=== PATIENT | female | born 1980 | race Caucasian/White ===

== ENCOUNTER 2019-11-03 12:41 | Emergency (ER) | payer MEDICAID ==
[2019-11-03 13:08] VITALS: TEMP 98.5
[2019-11-03] MEDS ORDERED: ACETAMINOPHEN-CAFF-BUTALBITAL 1 EA TAB PO ONE (13:40)
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
[2019-11-03 14:14] VITALS: BP 119/69; O2SAT 99
== END 2019-11-03 14:13 | disposition home or self-care (01) ==
LOC: ER 12:41
DX: S06.0X0A Concussion without loss of consciousness, initial encounter (principal); G44.319 Acute post-traumatic headache, not intractable; E07.9 Disorder of thyroid, unspecified; E11.9 Type 2 diabetes mellitus without complications; K21.9 Gastro-esophageal reflux disease without esophagitis; Z87.891 Personal history of nicotine dependence; W22.8XXA Striking against or struck by other objects, initial encounter; Y92.9 Unspecified place or not applicable

== ENCOUNTER → 2020-09-30 | Outpatient (CLI) | payer MEDICAID ==
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
--- NOTE | 2020-10-01 10:50 | RAD ---
EXAM DESCRIPTION: Cervical Spine,5 Views CLINICAL HISTORY: CERVICALGIA COMPARISON: None Available. TECHNIQUE: AP/lateral/ both oblique/open-mouth odontoid FINDINGS: There is anatomic alignment of the cervical spine with C1-C6 are visualized on lateral view. Port-A-Cath is present on the right with catheter looped into the lower cervical region. The tip of the catheter is lower in the chest. Cervical ribs are incidentally noted at C7. There is no bone lesion or fracture. Degenerative disc narrowing is [id number] at C4-5 and C6-7 with anterior spurring. There is no soft tissue abnormality identified. Oblique views show normal alignment of the lower cervical and upper thoracic vertebrae. The right-sided cervical neural foramina are not well-seen due to shallow oblique. The left-sided cervical neural foramina appear widely patent. IMPRESSION: Degenerative changes as described. Electronically signed by: Genaro Chand MD 10/01/2020 10:48 AM [facility]
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
== END ==
LOC: RAD 14:08
PROVIDERS: ATTEND Emergency Medicine
DX: J18.0 Bronchopneumonia, unspecified organism (principal); M47.892 Other spondylosis, cervical region; M25.512 Pain in left shoulder; M25.78 Osteophyte, vertebrae